=== PATIENT | male | born 2000 | race Two or more races ===

== ENCOUNTER 2024-09-18 15:55 | Emergency (ER) | payer MEDICAID, SELFPAY ==
[2024-09-18 16:07] VITALS: BP 147/97; PULSE 88; RESP 18; TEMP 36.6; O2SAT 98; BMI 29.6
--- NOTE | 2024-09-18 16:25 | XR_ITS ---
Examination: Hand, right 2 views Technique: Hand AP, lateral 2 views Date and time of exam: September 18, 2024, 1705 hours INDICATIONS: Injury to the right hand yesterday, hand pain FINDINGS: 3 mm chip fracture displaced off the dorsal base distal phalanx fifth digit No dislocation IMPRESSION: Acute chip fracture dorsal base distal phalanx fifth digit
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
[2024-09-18] MEDS: IBUPROFEN TAB 400 MG TABLET 800 MG PO (18:32)
== END 2024-09-18 18:54 | disposition home or self-care (01) ==
PROVIDERS: Emergency Provider Emergency Medicine
DX: S62.636A Displaced fracture of distal phalanx of right little finger, initial encounter for closed fracture (principal); Y04.0XXA Assault by unarmed brawl or fight, initial encounter
CPT/HCPCS: 73120; 99283; A9270